=== PATIENT | female | born 1960 | race Two or more races ===

== ENCOUNTER 2019-07-23 07:53 | Emergency (ER) | payer MEDICAID ==
[~2019-07-23] VITALS: Ht 160 cm; Wt 59.7 kg
[2019-07-23] MEDS ORDERED: ALBUTEROL/IPRATROPIUM 2.5MG/0.5MG, 3 ML ONE (08:47)
[2019-07-23] MEDS: ALBUTEROL/IPRATROPIUM 2.5MG/0.5MG, 3 ML NPPB SCH ×2 (08:53→08:54)
--- NOTE | 2019-07-23 09:07 | NUR ---
PT TO XRAY
[2019-07-23 09:13] LABS: BASOPHILS # (AUTO) 0.06 x10^3/uL (0-0.1); BASOPHILS % (AUTO) 1 % (0-1); EOSINOPHILS # (AUTO) 0.06 x10^3/uL (0-0.4); EOSINOPHILS % (AUTO) 1 % (1-7); LYMPHOCYTES # (AUTO) 1.33 x10^3/uL (1-3.4); LYMPHOCYTES % (AUTO) 18 % (22-44); MD NO; MEAN CORPUSCULAR HEMOGLOBIN 31.1 pg (27.0-34.8); MEAN CORPUSCULAR HGB CONC 33.2 g/dL (32.4-35.8); MEAN CORPUSCULAR VOLUME 93.5 fL (80-100); MEAN PLATELET VOLUME 7.7 fL (7.4-10.4); MONOCYTES # (AUTO) 0.56 x10^3/uL (0.2-0.8); MONOCYTES % (AUTO) 8 % (2-9); NEUTROPHILS % (AUTO) 73 % (42-75); PLATELET COUNT 279 x10^3/uL (130-400); RED BLOOD COUNT 4.32 x10^6/uL (3.82-5.3); RED CELL DISTRIBUTION WIDTH 12.6 % (9.6-15.2)
[2019-07-23 09:20] LABS: ALBUMIN 3.5 g/dL (3.4-5.0); ANION GAP 11 mmol/L (5-15); CALCIUM 8.3 mg/dL (8.5-10.1); CHLORIDE 106 mmol/L (98-107)
[2019-07-23 09:25] LABS: ALANINE AMINOTRANSFERASE 34 U/L (12-78); ALKALINE PHOSPHATASE 97 U/L (45-117); BILIRUBIN,TOTAL 0.9 mg/dL (0.2-1.0); CREATININE 0.82 mg/dL (0.55-1.02); TOTAL PROTEIN 7.3 g/dL (6.4-8.2)
[2019-07-23 09:28] LABS: MICROSCOPIC INDICATED
[2019-07-23 09:34] LABS: AMPHETAMINE SCREEN, URINE Negative (Negative); BARBITURATE SCREEN, URINE Negative (Negative); BENZODIAZEPINE SCREEN, URINE Negative (Negative); CANNABINOID SCREEN, URINE Negative (Negative); COCAINE SCREEN, URINE Negative (Negative); METHADONE SCREEN, URINE Negative (Negative); OPIATE SCREEN, URINE Negative (Negative)
--- NOTE | 2019-07-23 09:34 | NUR ---
PT TOLERATED PO WITH NO N/V
[2019-07-23 09:37] LABS: CULTURE INDICATED? YES
[2019-07-23] MEDS ORDERED: PINK LADY ENEMA 490 ML BOTTLE PR STA (09:49)
--- NOTE | 2019-07-23 10:01 | NUR ---
AME SENT TO PHARMACY FOR ENEMA
--- NOTE | 2019-07-23 11:28 | NUR ---
PER DR ROSAS, NO ENEMA AT THIS TIME.
--- NOTE | 2019-07-23 11:30 | NUR ---
SW TO SEE
[2019-07-23 11:45] VITALS: BP 101/61
--- NOTE | 2019-07-23 12:11 | NUR ---
PT LEFT AMA AFTER SPEAKING WITH [employer]ER
== END 2019-07-23 12:13 | disposition left against medical advice (07) ==
LOC: ED 11:47
DX: K59.00 Constipation, unspecified (principal); F99 Mental disorder, not otherwise specified; J12.9 Viral pneumonia, unspecified; F17.200 Nicotine dependence, unspecified, uncomplicated; J45.909 Unspecified asthma, uncomplicated
CPT/HCPCS: 36415; 71046; 74021; 80053; 80307; 81001; 85025; 87086; 94640; 99284; J7512; J7620